=== PATIENT | female | born 1945 | race Caucasian/White ===

== ENCOUNTER 2018-11-29 07:21 | Day surgery (SDC) | payer BC ==
[~2018-11-29 07:21] MED LIST: ACETAMINOPHEN 1,000 MG/100 ML BTL IVPB ONE
[2018-11-29] MEDS ORDERED: LIDOCAINE 2% MDV (20MG/ML) 20ML VIAL IV ONE (07:22)
[2018-11-29] MEDS ORDERED: GLYCOPYRROLATE 0.2 MG/ML ML IV ONE (07:22)
[2018-11-29] MEDS ORDERED: ONDANSETRON HCL IV 4 MG/2 ML VIAL IVP ONE (07:22)
[2018-11-29] MEDS ORDERED: ATROPINE SULFATE 0.4 MG/ML 20ML IVP ONE (07:22)
[2018-11-29] MEDS ORDERED: FENTANYL PF 100MCG/2ML VIAL IV ONE (07:22)
[2018-11-29] MEDS ORDERED: RINGERS SOLUTION,LACTATED 1,000 ML IV ONE (08:05)
[2018-11-29] MEDS ORDERED: BUPIVACAINE 0.25% W/EPI MPF 30ML VIAL SQ ONE (09:29)
--- NOTE | 2018-12-01 07:50 | Operative Note ---
DATE OF SURGERY: 11/29/2018 SURGEON: Jason Perez DO PREOPERATIVE DIAGNOSES: 1. Torn medial meniscus of the right knee. 2. Chondromalacia of the right knee. 3. Synovitis, right knee. POSTOPERATIVE DIAGNOSIS: Chondromalacia of patella, trochlea, medial and lateral femoral condyles, and medial tibial plateau and lateral tibial plateau of the right knee. OPERATION: 1. Arthroscopic chondroplasty of the patella and trochlea, medial femoral condyle and medial tibial plateau, right knee. 2. Arthroscopic partial synovectomy, right knee (2 compartments). DESCRIPTION OF PROCEDURE: This 72-year-old female was taken to the operating room and placed in the supine position on the operating room table where general anesthetic was administered. The right lower extremity was elevated. It was exsanguinated and the tourniquet inflated to 300 mmHg. Arthroscopic knee davalos applied. Right knee prepped with Hibiclens and draped in the usual sterile fashion. An inferolateral portal was established for the 4 mm arthroscope, and initial evaluation of the joint demonstrated grade 3 chondromalacia of the trochlea as well as grade 3 chondromalacia of the patella with marked loose fragmentation of the articular cartilage there. Through an inferomedial portal, chondroplasty was performed after probing to remove loose fragments of articular cartilage. We then directed our attention to the medial compartment and grade 2 chondromalacia of the entire weightbearing surface of the medial femoral condyle was present. We probed the medial meniscus and that did not demonstrate disruption of the medial meniscus. However, there was fraying grade 2 changes noted on the medial tibial plateau, and this was debrided with a rotating shaver. Partial synovectomy of the anterior compartment was also performed due to hypertrophic synovium. The intracondylar notch was examined and found to be normal. The lateral compartment was entered, and the lateral femoral condyle demonstrated grade 1 change of the lateral femoral condyle. No meniscal tear was present. The tibial plateau demonstrated minimal grade 2 changes but it was not severe enough to warrant any debridement. The joint was then copiously irrigated with lactated Ringer's solution. All areas were reexamined. No additional findings were present. The joint was suctioned. The instruments were removed. The portals were closed with 4-0 nylon suture. Sterile dressings were applied, and the patient taken to the recovery room in satisfactory condition. GROSS PATHOLOGY: This patient demonstrated advanced grade 3 changes of the articular cartilage of the trochlea and the patella. The entire articulating surface of the trochlea and patella were affected. The entire weightbearing surface of the medial femoral condyle demonstrated grade 2 changes, and grade 2 changes also noted of the medial tibial plateau. Grade 1 changes were noted of the lateral femoral condyle and minimal grade 2 changes noted at the lateral tibial plateau. CC: DO JAGDISH Mccarty
== END 2018-11-29 10:23 | disposition home or self-care (01) ==
LOC: SUR 07:21
PROVIDERS: ATTEND Orthopaedic Surgery
DX: M94.261 Chondromalacia, right knee (principal); E78.00 Pure hypercholesterolemia, unspecified; I10 Essential (primary) hypertension; E03.9 Hypothyroidism, unspecified
CPT/HCPCS: 29876; 01400; J2405; J3010; J7120

== ENCOUNTER 2018-12-29 07:45 | Day surgery (SDC) | payer BC ==
[~2018-12-29 07:45] MED LIST changes: +RINGERS SOLUTION,LACTATED 1,000 ML IV ONE
[2018-12-29] MEDS ORDERED: PROPOFOL 10 MG/ML VIAL IV ONE (07:46)
[2018-12-29] MEDS ORDERED: LIDOCAINE 2% MDV (20MG/ML) 20ML VIAL IV ONE (07:46)
[2018-12-29] MEDS ORDERED: ONDANSETRON HCL IV 4 MG/2 ML VIAL IVP ONE (07:46)
[2018-12-29] MEDS ORDERED: FENTANYL PF 100MCG/2ML VIAL IV ONE (07:46)
[2018-12-29] MEDS ORDERED: KETOROLAC 30 MG/ML VIAL IVP ONE (07:46)
--- NOTE | 2018-12-30 09:40 | Operative Note ---
DATE OF SURGERY: 12/29/2018 PREOPERATIVE DIAGNOSES: 1. Torn medial meniscus of the left knee. 2. Chondromalacia of the left knee. POSTOPERATIVE DIAGNOSES: 1. Torn lateral meniscus of the left knee. 2. Chondromalacia at the patellofemoral joint and medial femoral condyle left knee. OPERATION: 1. Arthroscopic partial lateral meniscectomy left knee. 2. Arthroscopic chondroplasty of the patella, trochlea, and medial femoral condyle of the left knee. SURGEON: Jason Perez D.O. REFERRING PHYSICIAN: Braden Smith D.O. ANESTHESIA: General. PROCEDURE: This 73-year-old female was taken to the operating room and placed in the supine position on the operating table where general anesthesia was induced. The left lower extremity was elevated, it was exsanguinated and the tourniquet inflated to 300 mmHg. Arthroscopic knee davalos applied. The left knee prepped with Hibiclens and draped in the usual sterile fashion. An inferior lateral portal was established with a 4 mm arthroscope. Initial evaluation of the joint demonstrated degenerative arthritic change of the patella with grade 2 changes noted throughout the median ridge. Loose fragmented articular cartilage was identified and chondroplasty was performed to stabilize the articular cartilage there. The trochlea demonstrated advanced degenerative disease with very, very severe grade 3 changes noted throughout the entire trochlea with only a very minimal amount of normal articular cartilage present on the very lateral edge of the lateral femoral condyle at the level of the trochlea. Dorsally and stable articular cartilage was present there and chondroplasty was performed to stabilize the articular cartilage. The medial compartment was entered and grade 2 chondromalacia of the medial femoral condyle was present with loose fragments of articular cartilage noted there as well. This was mostly on the lateral half of the medial femoral condyle. These were not severe degenerative changes. The medial meniscus was probed and found to be normal. The intercondylar notch was examined and found to be normal. The lateral compartment was entered and a degenerative-type tear of the lateral meniscus was present at its attachment site and fragmentation of the attachment of the meniscus was present there. This was debrided. This was then reprobed and confirmed to be stable. A relatively small portion of this meniscus was removed at the posterior attachment at a depth of about 2 to 3 mm at the most and it was smoothed with a rotating shaver and felt to be stable. The lateral articular cartilage appeared normal. The joint was copiously irrigated and suctioned. All areas re-examined with no additional findings being present. The joint was suctioned and the instruments were removed. The portals infiltrated with 0.25% Marcaine with epinephrine. Sterile dressings applied and the patient taken to the recovery room in satisfactory condition. GROSS PATHOLOGY: This patient demonstrated severe degenerative disease at the patellofemoral joint with the trochlea showing severe grade 3 changes and grade 2 changes noted through the entire articulating surface of the patella. There were grade 2 changes in the medial femoral condyle and a small tear of the attachment of the lateral meniscus but the root was not avulsed and it was not torn. MTDD
== END 2018-12-29 11:05 | disposition home or self-care (01) ==
LOC: SUR 07:45
PROVIDERS: ATTEND Orthopaedic Surgery
DX: S83.282A Other tear of lateral meniscus, current injury, left knee, initial encounter (principal); M22.42 Chondromalacia patellae, left knee; I10 Essential (primary) hypertension; E78.00 Pure hypercholesterolemia, unspecified; E03.9 Hypothyroidism, unspecified; D68.0 Von Willebrand disease
CPT/HCPCS: 29881; 01400; J1885; J2405; J3010; J7120